=== PATIENT | male | born 1960 | race Caucasian/White ===

== ENCOUNTER 2023-05-12 18:33 | Emergency (ER) | payer SELFPAY ==
[~2023-05-12] VITALS: Ht 167.6 cm; Wt 79.8 kg
[2023-05-12 19:30] LABS: HEMATOCRIT 54.5 % (42.0-52.0); MEAN CELL VOLUME 92.1 fl (80.0-94.0); MEAN CORPUSCULAR HGB 30.2 pg (27.0-31.0); MEAN CORPUSCULAR HGB CONC 32.8 g/dl (33.0-37.0); MEAN PLATELET VOLUME 9.6 fl (9.6-12.3); PLATELET COUNT AUTOMATED 243 10*3/uL (130-400); RED BLOOD COUNT 5.92 10*6/uL (4.50-5.90); RED CELL DISTRI WIDTH 11.8 % (0-14.5)
[2023-05-12 19:31] LABS: MANUAL DIFF REFLEX YES
[2023-05-12 19:47] LABS: BILIRUBIN 2+ (Negative); BLOOD 3+ (Negative); CLARITY Turbid (Clear); COLOR Red (Yellow); GLUCOSE 3+ (Negative); KETONE Negative (Negative); LEUKO ESTERASE 1+ (Negative); NITRITE Negative (Negative); SPECIFIC GRAVITY 1.025 (1.001-1.030); UROBILINOGEN 0.2 E.U./dl (0.0-1.0)
[2023-05-12 19:52] LABS: ALKALINE PHOSPHATASE 106 U/L (46-116); BUN 55 mg/dl (9-23); CHLORIDE 107 mmol/L (98-107); CPK 165 U/L (34-171); LIPASE 30 U/L (12-53); POTASSIUM 3.7 mmol/L (3.4-5.1); SGPT/ALT 9 U/L (5-49); TOTAL PROTEIN 7.6 gm/dL (6.0-8.0)
[2023-05-12 19:54] LABS: URINE AMPHETAMINES Negative (1000ng/ml); URINE BARBITURATES Negative (200ng/ml); URINE BENZODIAZEPINES Positive (200ng/ml); URINE CANNABINOIDS (THC) Negative (50ng/ml); URINE COCAINE Positive (300ng/ml); URINE METHADONE Negative (300ng/ml); URINE OPIATES Negative (300ng/ml); URINE PHENCYCLIDINE Negative (25ng/ml)
[2023-05-12 19:54] LABS: ETHYL ALCOHOL < 3.0 mg/dl (<3)
[2023-05-12 20:06] LABS: ABG BASE EXCESS -4.4 mmol/L (-2.0-2.0); ARTERIAL BLOOD GAS PH 7.274 (7.35-7.45)
[2023-05-12 20:13] LABS: BURR CELLS FEW; PLATELET SUFFICIENCY NORMAL (NORMAL); TOTAL CELLS COUNTED 100 #CELLS
[2023-05-12 20:21] LABS: RBC TNTC rbc/hpf (0-2)
[2023-05-12 20:22] LABS: URIC ACID CRYSTALS 1+
== END 2023-05-12 22:00 | disposition short-term general hospital (02) ==
LOC: ED 18:33
PROVIDERS: Emergency Medicine
DX: I62.00 Nontraumatic subdural hemorrhage, unspecified (principal); Z79.899 Other long term (current) drug therapy; Z20.822 Contact with and (suspected) exposure to COVID-19